=== PATIENT | female | born 1945 | race Caucasian/White ===

== ENCOUNTER 2018-08-08 05:43 | Inpatient (IN) | payer MEDICARE ==
[~2018-08-08 05:43] MED LIST: Buffered Lidocaine 1% SYRIN* 1 ML/SYRINGE INTRADERM ONE
[2018-08-08] MEDS ORDERED: Gabapentin CAP(*) 300 MG PO ONE (06:00)
[2018-08-08] MEDS ORDERED: celeCOXIB CAP* 200 MG PO ONE (06:00)
[2018-08-08] MEDS ORDERED: Metoclopramide IV* 5 MG/ML 2 ML VIAL IV SLOW PU ONE (06:00)
[2018-08-08] MEDS ORDERED: Famotidine TAB* 20 MG PO ONE (06:00)
[2018-08-08] MEDS ORDERED: Acetaminophen TAB* 325 MG PO ONE (06:00)
[2018-08-08] MEDS ORDERED: Lactated Ringers 1000 ML Bag* 1,000 ML IV SCH ×2 (06:00→15:00)
[2018-08-08] MEDS ORDERED: Metoclopramide IV* 5 MG/ML 2 ML VIAL ONE (06:18)
[2018-08-08] MEDS ORDERED: celeCOXIB CAP* 200 MG ONE (06:18)
[2018-08-08] MEDS ORDERED: Acetaminophen TAB* 325 MG ONE (06:18)
[2018-08-08] MEDS ORDERED: Gabapentin CAP(*) 300 MG ONE (06:18)
[2018-08-08] MEDS ORDERED: Famotidine TAB* 20 MG ONE (06:18)
[2018-08-08] MEDS ORDERED: ceFAZolin 2 GM in NS PREMIX(*) 2 GM/100 ML BAG IVPB ONE (06:19)
[2018-08-08] MEDS ORDERED: Thrombin 5,000 UNITS* 1 APPLIC KIT - topical use - TOPICAL ONE (07:23)
[2018-08-08] MEDS ORDERED: Lidocaine 1% MPF wEPI 200,000* 30 ML SDV ONE (07:23)
[2018-08-08] MEDS ORDERED: Bacitracin INJECTION* 50,000 UNITS ONE ×2 (07:24→11:43)
[2018-08-08] MEDS ORDERED: Rocuronium* 10 MG/ML VIAL ONE ×2 (07:25→08:35)
[2018-08-08] MEDS ORDERED: fentaNYL* 50 MCG/ML 2 ML VIAL (100 MCG VIAL) ONE ×2 (07:25→15:29)
[2018-08-08] MEDS ORDERED: Midazolam* 1 MG/ML 2 ML VIAL (2 MG) ONE (07:25)
[2018-08-08] MEDS ORDERED: Lidocaine 2% PF * 5 ML VIAL ONE (07:25)
[2018-08-08] MEDS ORDERED: Propofol* 10 MG/ML 20 ML BTL ONE (07:26)
[2018-08-08] MEDS ORDERED: Succinylcholine* 20 MG/ML 10 ML VIAL ONE (07:26)
[2018-08-08] MEDS ORDERED: HYDROmorphone INJ1* 1 MG/ML SYRINGE ONE (08:07)
[2018-08-08] MEDS ORDERED: Naloxone* 0.4 MG/ML 1 ML VIAL IV PRN (08:13)
[2018-08-08] MEDS ORDERED: fentaNYL* 50 MCG/ML 2 ML VIAL (100 MCG VIAL) IV PRN (08:13)
[2018-08-08] MEDS ORDERED: oxyCODONE TAB* 5 MG TAB PO PRN (08:13)
[2018-08-08] MEDS ORDERED: HYDROmorphone INJ1* 1 MG/ML SYRINGE IV PRN (08:13)
[2018-08-08] MEDS ORDERED: Acetaminophen IV 1GM/100ML * 1,000 MG/100 ML VIAL IVPB ONE (08:13)
[2018-08-08] MEDS ORDERED: EPHEDrine (Pressors)* 50 MG/ML VIAL ONE (08:31)
[2018-08-08] MEDS ORDERED: ceFAZolin VIAL(*) VIAL ONE (12:03)
[2018-08-08] MEDS ORDERED: Ondansetron INJ* 2 MG/ML VIAL ONE (13:10)
[2018-08-08] MEDS ORDERED: Magnesium Hydroxide LIQ* 30 ML UDC PO PRN (14:13)
[2018-08-08] MEDS ORDERED: Albuterol 2.5 MG/3 ML NEB.SOL* (0.083%) INH PRN (14:29)
[2018-08-08] MEDS ORDERED: Mupirocin 2% OINT* TUBE TOPICAL PRN (14:29)
[2018-08-08] MEDS ORDERED: Triamcinolone 0.1% CREAM (NF) 15 GM TUBE TOPICAL PRN (14:29)
[2018-08-08] MEDS ORDERED: Acetaminophen IV 1GM/100ML * 100 ML ONE (14:47)
[2018-08-08] MEDS ORDERED: DiMENhydriNATE IV* 50 MG/ML VIAL ONE (15:00)
[2018-08-08] MEDS: DiMENhydriNATE IV* 50 MG/ML VIAL IV PUSH PRN ×2 (15:02→15:44)
[2018-08-08] MEDS: HYDROcodone/ACETAMIN 5-325 MG* 1 TAB PO PRN ×2 (17:02→21:32)
[2018-08-08] MEDS: Atorvastatin* 10 MG TAB PO SCH (17:49)
[2018-08-08] MEDS ORDERED: Senna TAB PO PRN (20:17)
[2018-08-08] MEDS ORDERED: Dextrose 50% Syringe 50 ML* 25 GM/50 ML SYRINGE IV PUSH PRN (20:17)
[2018-08-08] MEDS ORDERED: metFORMIN* 500 MG TAB PO SCH (21:00)
[2018-08-08] MEDS: Docusate CAP* 100 MG PO PRN (21:32)
[2018-08-08] MEDS: Cyclobenzaprine TAB* 10 MG PO PRN (21:33)
[2018-08-08] MEDS: Insulin LISPRO* 1 UNITS UNIT SUBCUT SCH (21:35)
--- NOTE | 2018-08-08 22:43 | CONS ---
CC: Dia Marie NP* CONSULTATION REPORT: DATE OF CONSULTATION: 08/08/18 PRIMARY CARE PROVIDER: Dia Marie NP. PHYSICIAN IN CONSULTATION: Dr. Balderas.* PRIMARY DIAGNOSIS: L3-L4 and L4-L5 right laminectomy. REASON FOR CONSULTATION: Medical management of hypertension, hyperlipidemia, type 2 diabetes. HISTORY OF PRESENT ILLNESS/HOSPITAL COURSE: Mrs. Veloz is a 73-year-old female, who presented to the [facility] today for an elective L3-L4 and L4-L5 right laminectomy with Dr. Balderas. PAST MEDICAL HISTORY: 1. Gastroduodenitis. 2. Type 2 diabetes. 3. Hypertension. 4. Hypothyroid. 5. GERD. 6. Hyperlipidemia. PAST SURGICAL HISTORY: 1. Cholecystectomy. 2. Tubal ligation. 3. Appendectomy. 4. Rectocele repair. 5. Total hysterectomy. 6. Carpal tunnel release. HOME MEDICATIONS: 1. PreserVision 1 each p.o. b.i.d. 2. Triamcinolone 0.1 cream, 1 application topical. 3. Simvastatin 1 tab p.o. q.p.m. 4. Protonix 40 mg p.o. q.a.m. 5. Bactroban 1 application topical once. 6. Multivitamin 1 tab p.o. q.a.m. 7. Metoprolol succinate 25 mg p.o. q.a.m. 8. Metformin 1000 mg p.o. q.p.m. 9. Losartan 50 mg p.o. q.a.m. 10. Levothyroxine 175 mcg p.o. q.a.m. 11. Krill oil omega 1 cap p.o. q.a.m. 12. Furosemide 20 mg p.o. q.a.m. 13. Celexa 20 mg p.o. q.a.m. 14. Albuterol nebulizer 2.5 mg inhalations t.i.d. 15. Align 1 cap p.o. q.a.m. FAMILY HISTORY: The patient reports that her father due to colon cancer in his 80s. She reports her mother was due to kidney disease. She reports she has a brother who is due to pancreatic cancer. She reports she has a living sister who has colon polyps. SOCIAL HISTORY: The patient lives with her . The patient is independent in her ADLs. The patient is a former smoker who reports a 30-year, 1.5-pack per day, history. The patient reports social alcohol use approximately 3 times a week. The patient denies drug use. REVIEW OF SYSTEMS: The patient reports right-sided back pain that radiates to her buttocks. The patient rates the pain as 4/10. The patient denies numbness or tingling, chest pain, shortness of breath, nausea, vomiting, headache. A 14- point review of systems was completed and all others are negative. PHYSICAL EXAMINATION: General: Mrs. Veloz is a 73-year-old female, who is lying flat in bed. She appears to be in no acute distress. Appears stated age. Vital Signs: Temp 98.1, HR 78, RR 16, O2 saturation 100% on room air, BP 123/ 48. HEENT: EOMs intact. PERRLA. Oral mucosa is moist, without lesions. Posterior pharynx is clear. Neck: Supple. No lymphadenopathy. Respiratory: Lungs are clear to auscultation. No wheezes, rhonchi or rubs. Good aeration. Cardiac: S1 and S2 present. No murmurs, rubs or gallops. Regular rate and rhythm. Abdomen: Soft, nontender. Bowel sounds normoactive. Extremities: No edema. No clubbing or cyanosis. Pedal pulses are 2+ bilaterally. Musculoskeletal: The patient reports pain to lumbar spine. No other deformities or pain noted. Skin: Grossly intact. Neuro: Neuro exam is grossly intact. No focal deficits or weakness. ASSESSMENT AND PLAN: 1. Status post L3-L4 and L4-L5 laminectomy: Managed per neurosurgery team. Pain medication has been ordered per Neurosurgery. I will add bowel regimen. The patient has SCDs for DVT prophylaxis. 2. Dural leak: There is a report of a dural leak. Therefore, the patient is to remain flat at all times. She can increase to 30 degrees for eating, then return to the flat position. The patient should be monitored for headache, nausea, and vomiting. The patient was educated on these symptoms and encouraged to call nursing immediately if they occur. The patient stated understanding. 3. Type 2 diabetes: The patient is on metformin at home. Given her current surgery, I will hold her metformin and place her on a sliding scale lispro with fingersticks a.c. and at bedtime. 4. Hypertension: The patient is currently normotensive, with slight hypotension. Last systolic was 123 and the one before that was 118. Given her postop status, I will hold her Lasix and losartan. I will continue her metoprolol. 5. Hypothyroid: I will continue the patient's levothyroxine. 6. Gastroesophageal reflux disease: I will continue the patient's PPI. 7. Hypercholesterolemia: I would recommend continuing the patient's statin. 8. Surrogate decision maker: The patient reports her , Aris Veloz , will be her surrogate decision maker in the event she cannot make decisions for herself. 9. Code status: The patient is a full code. 10. FEN: Diet has been ordered by the neurosurgery team. Thank you for allowing us to assist you in the care of this patient. We will follow along with you while the patient is admitted. Reviewed by LYNDSEY BAZZI NP 08/11/18 @ 1005 [id number]/[facility] #: [id number] MTDD
[2018-08-09] MEDS: HYDROcodone/ACETAMIN 5-325 MG* 1 TAB PO PRN ×4 (03:30→21:16)
[2018-08-09] MEDS ORDERED: Furosemide TAB* 20 MG PO SCH (09:00)
[2018-08-09] MEDS ORDERED: Losartan TAB* 25 MG PO SCH (09:00)
[2018-08-09] MEDS: OMEGA PO SCH (09:04)
[2018-08-09] MEDS: BIFIDOBACTERIUM INFANTIS PO SCH (09:04)
[2018-08-09] MEDS: DHA PO SCH (09:04)
[2018-08-09] MEDS: EPA PO SCH (09:04)
[2018-08-09] MEDS: LIPIDS PO SCH (09:04)
[2018-08-09] MEDS: KRILL PO SCH (09:04)
[2018-08-09] MEDS: Insulin LISPRO* 1 UNITS UNIT SUBCUT SCH ×4 (09:05→21:17)
[2018-08-09] MEDS: Vitamin THERAPEUTIC TAB PO SCH (09:05)
[2018-08-09] MEDS: Pantoprazole TAB * 40 MG TAB PO SCH (09:05)
[2018-08-09] MEDS: Metoprolol Succinate XL TAB* 25 MG PO SCH (09:05)
--- NOTE | 2018-08-09 09:15 | PN ---
Progress Note - Progress Note Date of Service: 08/09/18 SOAP: Subjective: 73 y/o female post right side laminectomy, foraminotomy at L3/L4, L4/L5 POD # 1 , patient did not have any acute issues over night. She denies headache, nausea and vomiting. She has been able to tolerate oral intake with out issues. Patient states pain in leg has improved, but strength is unchanged. Objective: Vital Signs - 12 hr Temp Pulse Resp BP Pulse Ox 08/09/18 07:51 98.6 F 79 20 125/53 92 08/09/18 07:42 20 98 08/09/18 05:30 20 08/09/18 03:30 20 08/09/18 03:03 98.3 F 76 18 132/54 98 08/09/18 01:21 99 08/09/18 00:10 16 08/09/18 00:09 16 08/08/18 22:39 98.7 F 75 16 138/55 99 08/08/18 21:45 20 08/08/18 21:35 20 08/08/18 21:33 20 08/08/18 21:32 20 08/08/18 21:28 20 General: GCS 15, A&O x 3, CN II - XII grossly intact, EOM's intact, UPE motor strength intact, Lower extremity motor strength right 4/5 with hip flexion and extension, 5/5 on left with hip flexion and extension. Sensation intact with light touch. Assessment: 73 y/o female post right laminectomy, foraminotomy POD#1 patient is doing well, still on bed rest, with bed flat. The sensation has improved in her right leg, but strength is unchanged. Plan: 1) Continue bed rest, bed should bed flat, may elevate bed up to 30 degrees when eating 2)Continue follow medicines recommendation for BP, HTN, DM and HLD management. 3) Pain management as needed
[2018-08-09 10:02] LABS: ABS Basophils 0.1 10^3/ul (0-0.2); ABS Eosinophils 0.1 10^3/ul (0-0.6); ABS Lymphocytes 1.3 10^3/ul (1.0-4.8); ABS Monocytes 0.3 10^3/ul (0-0.8); ABS Neutrophils 4.3 10^3/ul (1.5-7.7); Eosinophil % 1.1 %; Hematocrit 32 % (35-47); Hemoglobin 11.1 g/dL (12.0-16.0); Lymphocyte % 21.2 %; Mean Corpuscular HGB Conc 34 g/dL (31-36); Mean Corpuscular Hemoglobin 33 pg (27-31); Mean Corpuscular Volume 97 fL (80-97); Mean Platelet Volume 8.2 fL (7.4-10.4); Platelet Count 112 10^3/uL (150-450); Red Blood Count 3.31 10^6 /uL (3.70-4.87); Red Cell Distribution Width 14 % (10-15); White Blood Count 6.1 10^3/uL (3.5-10.8)
[2018-08-09] MEDS: Levothyroxine TAB* 175 MCG TAB PO SCH (10:07)
[2018-08-09 10:26] LABS: Albumin 3.6 g/dL (3.2-5.2); Albumin/Globulin Ratio 1.5 (1-3); BUN/Creatinine Ratio 21.5 (8-20); Calcium 8.5 mg/dL (8.6-10.3); EGFR African American 71.7 (>60); EGFR Non-African American 59.3 (>60); Globulin 2.4 g/dL (2-4); Total Bilirubin 0.5 mg/dL (0.2-1.0)
--- NOTE | 2018-08-09 15:04 | PN ---
Subjective Date of Service: 08/09/18 Interval History: Patient lying flat in bed on assessment. Reports right sided low back pain continues and radiates to buttocks. Reports it is mildly controlled with current pain medications regime. Denies numbness/tingling, headache, nausea, vomiting, cp, sob. Objective Active Medications: Hydrocodone Bitart/Acetaminophen (Carmi 5-325 Tab*) 2 tab PO Q4H PRN PRN Reason: marked pain Last Admin: 08/09/18 10:09 Dose: 2 tab Albuterol (Ventolin 2.5 Mg/3 Ml Neb.Gertrude*) 2.5 mg INH TID PRN PRN Reason: SOB/WHEEZING Atorvastatin Calcium (Lipitor*) 5 mg PO QPM [facility] Last Admin: 08/08/18 17:49 Dose: 5 mg Cyclobenzaprine HCl (Flexeril Tab*) 10 mg PO TID PRN PRN Reason: muscle ache Last Admin: 08/08/18 21:33 Dose: 10 mg Dextrose (D50w Syringe 50 Ml*) 12.5 gm IV PUSH .FOR FS < 60 - SS PRN PRN Reason: FS < 60 Docusate Sodium (Colace Cap*) 100 mg PO BID PRN PRN Reason: CONSTIPATION Last Admin: 08/08/18 21:32 Dose: 100 mg Lactated Ringer's (Lactated Ringers 1000 Ml Bag*) 1,000 mls @ 75 mls/hr IV .per rate [facility] Insulin Human Lispro (Humalog*) 0 units SUBCUT [facility]; Protocol Last Admin: 08/09/18 13:04 Dose: 3 units Levothyroxine Sodium (Synthroid Tab*) 175 mcg PO [facility] Last Admin: 08/09/18 10:07 Dose: 175 mcg Magnesium Hydroxide (Milk Of Magnesia Liq*) 30 ml PO DAILY PRN PRN Reason: CONSTIPATION Metoprolol Succinate (Toprol Xl Tab*) 25 mg PO [facility] Last Admin: 08/09/18 09:05 Dose: 25 mg Multivitamins (Theragran Tab*) 1 tab PO [facility] Last Admin: 08/09/18 09:05 Dose: 1 tab Mupirocin (Bactroban 2 % Oint*) 1 applic TOPICAL ONCE PRN PRN Reason: SKIN RASH Nft: Bifidobacterium Infantis [Align] 1 Cap) 1 cap PO [facility] Last Admin: 08/09/18 09:04 Dose: Not Given Nft: Krill/Dupree-3/Dha/Epa/Lipids [ Dupree-3 Krill Oil 500 Mg Sfgl] 1 Cap) 1 cap PO QAM SYLVIA Last Admin: 08/09/18 09:04 Dose: Not Given Pantoprazole Sodium (Protonix Tab*) 40 mg PO QAM SYLVIA Last Admin: 08/09/18 09:05 Dose: 40 mg Senna (Senokot Tab*) 2 tab PO BEDTIME PRN PRN Reason: CONSTIPATION Last Admin: 08/08/18 21:32 Dose: 2 tab Triamcinolone Acetonide (Kenalog 0.1% Cream (Nf)) 1 applic TOPICAL ONCE PRN PRN Reason: RASH Vital Signs - 8 hr 08/09/18 08/09/18 08/09/18 07:42 07:51 10:09 Temperature 98.6 F Pulse Rate 79 Respiratory 20 20 18 Rate Blood Pressure 125/53 (mmHg) O2 Sat by Pulse 98 92 Oximetry 08/09/18 08/09/18 11:30 13:07 Temperature 98 F Pulse Rate 72 Respiratory 21 18 Rate Blood Pressure 124/56 (mmHg) O2 Sat by Pulse 94 Oximetry Oxygen Devices in Use Now: Nasal Cannula Appearance: Comfortable, NAD Eyes: No Scleral Icterus Ears/Nose/Mouth/Throat: NL Teeth, Lips, Gums, Mucous Membranes Moist Neck: NL Appearance and Movements; NL JVP Respiratory: Symmetrical Chest Expansion and Respiratory Effort, Clear to Auscultation Cardiovascular: NL Sounds; No Murmurs; No JVD, RRR, No Edema Abdominal: NL Sounds; No Tenderness; No Distention Lymphatic: No Cervical Adenopathy Extremities: No Clubbing, Cyanosis Skin: No Rash or Ulcers Neurological: Alert and Oriented x 3, NL Muscle Strength and Tone Nutrition: Taking PO's Result Diagrams: 08/09/18 09:48 08/09/18 09:48 Additional Lab and Data: Laboratory Results - last 24 hr 08/08/18 08/08/18 08/08/18 06:29 14:19 21:28 WBC RBC Hgb Hct MCV MCH MCHC RDW Plt Count MPV Neut % (Auto) Lymph % (Auto) Emanuel % (Auto) Eos % (Auto) Baso % (Auto) Absolute Neuts (auto) Absolute Lymphs (auto) Absolute Monos (auto) Absolute Eos (auto) Absolute Basos (auto) Absolute Nucleated RBC Nucleated RBC % Sodium Potassium Chloride Carbon Dioxide Anion Gap BUN Creatinine Est GFR ( Amer) Est GFR (Non-Af Amer) BUN/Creatinine Ratio Glucose POC Glucose (mg/dL) 124 H 158 H 128 H Calcium Total Bilirubin AST ALT Alkaline Phosphatase Total Protein Albumin Globulin Albumin/Globulin Ratio 08/09/18 08/09/18 08/09/18 07:37 09:48 09:48 WBC 6.1 RBC 3.31 L Hgb 11.1 L Hct 32 L MCV 97 MCH 33 H MCHC 34 RDW 14 Plt Count 112 L MPV 8.2 Neut % (Auto) 71.6 Lymph % (Auto) 21.2 Emanuel % (Auto) 5.3 Eos % (Auto) 1.1 Baso % (Auto) 0.8 Absolute Neuts (auto) 4.3 Absolute Lymphs (auto) 1.3 Absolute Monos (auto) 0.3 Absolute Eos (auto) 0.1 Absolute Basos (auto) 0.1 Absolute Nucleated RBC 0.0 Nucleated RBC % 0.0 Sodium 137 Potassium 4.0 Chloride 104 Carbon Dioxide 24 Anion Gap 9 BUN 20 Creatinine 0.93 Est GFR ( Amer) 71.7 Est GFR (Non-Af Amer) 59.3 BUN/Creatinine Ratio 21.5 H Glucose 201 H POC Glucose (mg/dL) 139 H Calcium 8.5 L Total Bilirubin 0.50 AST 148 H ALT 141 H Alkaline Phosphatase 55 Total Protein 6.0 L Albumin 3.6 Globulin 2.4 Albumin/Globulin Ratio 1.5 08/09/18 11:31 WBC RBC Hgb Hct MCV MCH MCHC RDW Plt Count MPV Neut % (Auto) Lymph % (Auto) Emanuel % (Auto) Eos % (Auto) Baso % (Auto) Absolute Neuts (auto) Absolute Lymphs (auto) Absolute Monos (auto) Absolute Eos (auto) Absolute Basos (auto) Absolute Nucleated RBC Nucleated RBC % Sodium Potassium Chloride Carbon Dioxide Anion Gap BUN Creatinine Est GFR ( Amer) Est GFR (Non-Af Amer) BUN/Creatinine Ratio Glucose POC Glucose (mg/dL) 189 H Calcium Total Bilirubin AST ALT Alkaline Phosphatase Total Protein Albumin Globulin Albumin/Globulin Ratio Microbiology and Other Data: . Assess/Plan/Problems-Billing Assessment: 73 yr old with pmh of dm2, htn, hld, hypothyroid, gerd; who [place] [facility]. - Patient Problems (1) Status post laminectomy Comment: - POD 1 - Managment per Neurosurgery - Patient to lay flat at all times with the exception of eating at which point she can increase to 30 degress, but needs to return to flat per Neurosurg - Pain management ordered by Neurosurg - Bowel medications ordered (2) Hypertension Comment: - Normotensive - Hold Lasix and Losartan - Continue Metoprolol (3) Hyperlipidemia Comment: - Cont statin (4) Hypothyroid Comment: - Cont levothyroxine (5) GERD (gastroesophageal reflux disease) Comment: - Cont pepcid (6) Diabetes Comment: - Hold home Metformin - Cont SS lispro and FS ACHS (7) Transaminitis Comment: - Mild increase in AST and ALT. - No labs to compare in system - Patient reports she has elevated AST and ALT previously, had a biopsy and was diagnosed with "fatty liver". - Repeat CMP tomorrow (8) DVT prophylaxis Comment: - SCDs per Neurosurg Status and Disposition: Thank you for allowing to assist in the care of this patient. We will follow along with you. Attending: Jared Blackwell
--- NOTE | 2018-08-09 15:34 | OP ---
DATE OF OPERATION: 08/08/18 - ROOM #332 DATE OF : 47 SURGEON: Rohini Balderas MD RIGGER HELPER: TANIKA Reece. The case was done with assistance of surgical PA because of the complexity of the case. PRE-OP DIAGNOSES: 1. Degenerative disk disease. 2. Lumbar stenosis. 3. Neurogenic claudication. POST-OP DIAGNOSES: 1. Degenerative disk disease. 2. Lumbar stenosis. 3. Neurogenic claudication. OPERATIVE PROCEDURE: The patient underwent right side approach MIS laminectomies at L3-4, L4-5 with extended foraminotomies, and repair of incidental durotomy. ESTIMATED BLOOD LOSS: 50 cc. COMPLICATIONS: None. SUMMARY: The patient is a very pleasant 73-year-old female with complaints of back pain radiating to the right lower extremity with neurogenic claudication with MRI findings consistent with significant stenosis at L3-4 and L4-5 with degenerative disk disease. After failing to improve with conservative treatment modalities, she was offered the option of surgical intervention in the form of a lumbar decompression at L3-4 and L4-5. After explaining expectations, limitations, and possible complications of the procedure to the patient and her family including her and her son with complications including, but not limited to bleeding, infection, risk of injury to adjacent structures, coma, paralysis, , need for additional procedures, anesthesia risks, stroke, blindness, cancer, instability, hardware failure, adjacent level disease, pseudoarthrosis, spinal fluid leak, need for placement of lumbar drain , need for prolonged hospitalization, need for further surgeries, need for tracheostomy or gastrostomy, possibility of hematoma formation with loss of bladder and bowel control, as well as paralysis of the lower extremities; the patient was agreeable to proceed with surgery and informed consent was obtained. The patient understood that her condition may not improve and in fact may get worse after surgery and that she may need to have additional procedures in the future. The patient also understood that the operative plan may be modified according to intraoperative findings and conditions and that she may require prolonged hospitalization, prolonged ICU stay, or prolonged rehabilitation. She also understood that the case may be abandoned or done in more than 1 stages. DESCRIPTION OF PROCEDURE: The patient was brought to the operating room and was placed under general anesthesia by the anesthesia team. She was carefully positioned prone on the Giovany frame on the Scot table and all bony prominences were meticulously padded. Her skin was prepped and draped in the standard fashion. After appropriate surgical pause and patient identification, operative level was assessed with intraoperative fluoroscopic imaging. A small right paramedian incision over the L3-4 and L4-5 disk space was marked on the skin and the skin was infiltrated with local anesthetic. Skin was incised with #10 surgical blade. Incision was carried down through the dorsal fascia. Over a series of dilators, the [employer] tubular retractor system was introduced into the field. The operative microscope was brought into the field. Under microscopic magnification, the right lamina of L4 was identified and exposed. High-speed drill and Kerrison punches were used perform an ipsilateral and contralateral laminectomy at the L4 with extended foraminotomies. After repositioning of the retractor, the procedure was repeated for the L3 level. A significant stenosis in both levels was encountered and after the end of the decompression and foraminotomies, the thecal sac in both sides as well as the nerve roots were found to be free of any pressure phenomenon. Then, intraoperative fluoroscopic imaging confirmed appropriate surgical levels. After redirection of the tubular retractor caudally, it was elected to slightly extend the decompression at the L4-5 level based on the preoperative MRI. An incidental durotomy was noticed, which was identified. After the dura was gently exposed with use of Kerrison punches, the durotomy was isolated and it was primarily repaired with 4-0 Nurolon sutures. The dural defect was covered with Tisseel and layers of DuraGen. Of note, the dura was found to be extremely thin at that particular level and even when the primary closure was achieved, there was concern for future CSF leak from the thin part of the thecal sac. After the repair, Valsalva maneuver confirmed watertight closure. After copious irrigation, meticulous hemostasis confirmation and meticulous inspection, the tubular retractor was then gently removed and the wound was closed by layers. The dorsal fascia was approximated with 0 interrupted Vicryl sutures in a watertight fashion and a second layer of closure with running 0 Vicryl sutures was performed to reinforce the closure. After copious irrigation , meticulous inspection and confirmation of meticulous hemostasis, the subcutaneous tissue was approximated with inverted interrupted 2-0 Vicryl sutures while the skin was approximated with 0 Prolene sutures. At the end of the procedure, all counts were reported to be correct. The patient remained hemodynamically stable throughout the case. At the end of the procedure, the patient was turned supine, was extubated and was transferred to Recovery in excellent condition, moving all extremities well. The case was done with the assistance of surgical PA because of the complexity of the case. [id number]/[facility] #: [id number] MTDD
[2018-08-09] MEDS: Atorvastatin* 10 MG TAB PO SCH (17:52)
[2018-08-09] MEDS: Docusate CAP* 100 MG PO PRN (21:16)
[2018-08-10] MEDS ORDERED: Al Hydrox/Mg Hydrox/Simet LIQ* 30 ML UDC PO PRN (00:18)
[2018-08-10] MEDS: Acetaminophen TAB* 325 MG PO PRN ×2 (05:52→23:15)
[2018-08-10 07:35] LABS: ABS Lymphocytes 1.1 10^3/ul (1.0-4.8); ABS Monocytes 0.6 10^3/ul (0-0.8); ABS Neutrophils 6.1 10^3/ul (1.5-7.7); Eosinophil % 0.6 %; Hematocrit 33 % (35-47); Hemoglobin 11.4 g/dL (12.0-16.0); Lymphocyte % 14.4 %; Mean Corpuscular HGB Conc 35 g/dL (31-36); Mean Corpuscular Hemoglobin 34 pg (27-31); Mean Corpuscular Volume 97 fL (80-97); Mean Platelet Volume 8.7 fL (7.4-10.4); Platelet Count 123 10^3/uL (150-450); Red Blood Count 3.36 10^6 /uL (3.70-4.87); Red Cell Distribution Width 15 % (10-15); White Blood Count 7.9 10^3/uL (3.5-10.8)
[2018-08-10 07:52] LABS: Albumin 3.7 g/dL (3.2-5.2); Albumin/Globulin Ratio 1.3 (1-3); BUN/Creatinine Ratio 20.8 (8-20); Calcium 8.9 mg/dL (8.6-10.3); EGFR African American 96.3 (>60); EGFR Non-African American 79.6 (>60); Globulin 2.8 g/dL (2-4); Indirect Bilirubin 0.5 mg/dL (0.3-1.0); Potassium 4.4 mmol/L (3.5-5.0); Total Bilirubin 0.6 mg/dL (0.2-1.0); Total Protein 6.5 g/dL (6.4-8.9)
--- NOTE | 2018-08-10 08:12 | PN ---
Progress Note - Progress Note Date of Service: 08/10/18 SOAP: Subjective: 73 y/o female post right side laminectomy foraminotomy at L3/L4, L4/L5 POD#2. Patient doing well, reports having a mild headache earlier this morning that was relived with Tylenol. She had some nausea, but feels the Hydrocodone upsets her stomach. She has remained on bed rest with remaining flat, only elevated for eating. overall patient has been stable and feel improvement with right leg strength. Objective: Vital Signs - 12 hr Temp Pulse Resp BP Pulse Ox 08/10/18 07:53 22 08/10/18 07:15 98.2 F 78 22 155/66 95 08/10/18 04:59 92 08/10/18 03:46 98.0 F 77 16 151/64 08/09/18 23:46 20 08/09/18 23:44 99.1 F 81 16 147/52 92 08/09/18 23:43 88 08/09/18 21:16 20 08/09/18 21:00 20 General: patient laying flat NAD Neuro: GCS 15, A&O x 3, CN II -XII, EOM intact, UPE motor strength 5/5 bilaterally, right LE 4/5, left LE 5/5, sensation intact. Assessment: 73 y/o female post laminectomy foraminotomy POD #2 recovering well, R LE strength appears to have improved, she able to lift leg more this morning than previously. Plan: Pain control as tolerated Have her work with resistance bands on LE while in bed Continue IS Can elevate HOB to 40 degrees when eating, should remain flat otherwise.
[2018-08-10] MEDS: BIFIDOBACTERIUM INFANTIS PO SCH (09:40)
[2018-08-10] MEDS: DHA PO SCH (09:40)
[2018-08-10] MEDS: LIPIDS PO SCH (09:40)
[2018-08-10] MEDS: OMEGA PO SCH (09:40)
[2018-08-10] MEDS: KRILL PO SCH (09:40)
[2018-08-10] MEDS: EPA PO SCH (09:40)
[2018-08-10] MEDS: Metoprolol Succinate XL TAB* 25 MG PO SCH (09:43)
[2018-08-10] MEDS: Pantoprazole TAB * 40 MG TAB PO SCH (09:43)
[2018-08-10] MEDS: Vitamin THERAPEUTIC TAB PO SCH (09:44)
[2018-08-10] MEDS: Insulin LISPRO* 1 UNITS UNIT SUBCUT SCH ×4 (09:44→21:02)
[2018-08-10] MEDS: Docusate CAP* 100 MG PO PRN (09:53)
[2018-08-10] MEDS: Cyclobenzaprine TAB* 10 MG PO PRN (09:53)
[2018-08-10] MEDS: Levothyroxine TAB* 175 MCG TAB PO SCH (11:13)
[2018-08-10] MEDS: HYDROcodone/ACETAMIN 5-325 MG* 1 TAB PO PRN ×2 (11:24→16:35)
--- NOTE | 2018-08-10 14:58 | PN ---
Subjective Date of Service: 08/10/18 Interval History: Patient lying flat in bed. She reports back pain is well controlled today as she just received a prn pain medication. She denies headache, nausea, vomiting, cp, sob. Objective Active Medications: Acetaminophen (Tylenol Tab*) 650 mg PO Q4H PRN PRN Reason: PAIN Last Admin: 08/10/18 05:52 Dose: 650 mg Hydrocodone Bitart/Acetaminophen ([place] 5-325 Tab*) 2 tab PO Q4H PRN PRN Reason: marked pain Last Admin: 08/10/18 11:24 Dose: 2 tab Al Hydrox/Mg Hydrox/Simethicone (Maalox Plus*) 30 ml PO Q4H PRN PRN Reason: INDIGESTION Last Admin: 08/10/18 00:27 Dose: 30 ml Albuterol (Ventolin 2.5 Mg/3 Ml Neb.Gertrude*) 2.5 mg INH TID PRN PRN Reason: SOB/WHEEZING Atorvastatin Calcium (Lipitor*) 5 mg PO QPM [facility] Last Admin: 08/09/18 17:52 Dose: 5 mg Cyclobenzaprine HCl (Flexeril Tab*) 10 mg PO TID PRN PRN Reason: muscle ache Last Admin: 08/10/18 09:53 Dose: 10 mg Dextrose (D50w Syringe 50 Ml*) 12.5 gm IV PUSH .FOR FS < 60 - SS PRN PRN Reason: FS < 60 Docusate Sodium (Colace Cap*) 100 mg PO BID PRN PRN Reason: CONSTIPATION Last Admin: 08/10/18 09:53 Dose: 100 mg Lactated Ringer's (Lactated Ringers 1000 Ml Bag*) 1,000 mls @ 75 mls/hr IV .per rate [facility] Insulin Human Lispro (Humalog*) 0 units SUBCUT ACHS [facility]; Protocol Last Admin: 08/10/18 13:03 Dose: 3 units Levothyroxine Sodium (Synthroid Tab*) 175 mcg PO [facility] Last Admin: 08/10/18 11:13 Dose: 175 mcg Magnesium Hydroxide (Milk Of Magnesia Liq*) 30 ml PO DAILY PRN PRN Reason: CONSTIPATION Metoprolol Succinate ([facility] Xl Tab*) [facility] Last Admin: 08/10/18 09:43 Dose: 25 mg Multivitamins (Theragran Tab*) 1 tab PO QAM [facility] Last Admin: 08/10/18 09:44 Dose: 1 tab Mupirocin (Bactroban 2 % Oint*) 1 applic TOPICAL ONCE PRN PRN Reason: SKIN RASH Nft: Bifidobacterium Infantis [Align] 1 Cap) 1 cap PO QAM [facility] Last Admin: 08/10/18 09:40 Dose: Not Given Nft: Krill/[place]-3/Dha/Epa/Lipids [ [place]-3 Krill Oil 500 Mg Sfgl] 1 Cap) 1 cap PO QAM [facility] Last Admin: 08/10/18 09:40 Dose: Not Given Pantoprazole Sodium (Protonix Tab*) 40 mg PO QAM [facility] Last Admin: 08/10/18 09:43 Dose: 40 mg Senna (Senokot Tab*) 2 tab PO BEDTIME PRN PRN Reason: CONSTIPATION Last Admin: 08/08/18 21:32 Dose: 2 tab Triamcinolone Acetonide (Kenalog 0.1% Cream (Nf)) 1 applic TOPICAL ONCE PRN PRN Reason: RASH Vital Signs - 8 hr 08/10/18 08/10/18 08/10/18 07:15 07:53 09:53 Temperature 98.2 F Pulse Rate 78 Respiratory 22 22 16 Rate Blood Pressure 155/66 (mmHg) O2 Sat by Pulse 95 Oximetry 08/10/18 08/10/18 08/10/18 11:12 11:24 12:05 Temperature 98.8 F Pulse Rate 81 Respiratory 16 20 18 Rate Blood Pressure 152/62 (mmHg) O2 Sat by Pulse 97 Oximetry Oxygen Devices in Use Now: Nasal Cannula Appearance: Comfortable, NAD Eyes: No Scleral Icterus, PERRLA Ears/Nose/Mouth/Throat: Clear Oropharnyx, Mucous Membranes Moist Neck: NL Appearance and Movements; NL JVP Respiratory: Symmetrical Chest Expansion and Respiratory Effort, Clear to Auscultation Cardiovascular: NL Sounds; No Murmurs; No JVD, RRR, No Edema Abdominal: NL Sounds; No Tenderness; No Distention Lymphatic: No Cervical Adenopathy Extremities: No Clubbing, Cyanosis, - - No calf pain, swelling, or warmth Skin: No Rash or Ulcers, - - Dressing to lumbar spine CDI Neurological: Alert and Oriented x 3, NL Muscle Strength and Tone Nutrition: Taking PO's Result Diagrams: 08/10/18 06:51 08/10/18 06:51 Additional Lab and Data: Laboratory Results - last 24 hr 08/09/18 08/09/18 08/10/18 16:28 20:55 06:51 WBC 7.9 RBC 3.36 L Hgb 11.4 L Hct 33 L MCV 97 MCH 34 H MCHC 35 RDW 15 Plt Count 123 L MPV 8.7 Neut % (Auto) 77.3 Lymph % (Auto) 14.4 Anson % (Auto) 7.4 Eos % (Auto) 0.6 Baso % (Auto) 0.3 Absolute Neuts (auto) 6.1 Absolute Lymphs (auto) 1.1 Absolute Monos (auto) 0.6 Absolute Eos (auto) 0.0 Absolute Basos (auto) 0.0 Absolute Nucleated RBC 0.0 Nucleated RBC % 0.0 Sodium Potassium Chloride Carbon Dioxide Anion Gap BUN Creatinine Est GFR ( Amer) Est GFR (Non-Af Amer) BUN/Creatinine Ratio Glucose POC Glucose (mg/dL) 158 H 164 H Calcium Total Bilirubin Direct Bilirubin Indirect Bilirubin AST ALT Alkaline Phosphatase Total Protein Albumin Globulin Albumin/Globulin Ratio 08/10/18 08/10/18 08/10/18 06:51 07:46 12:17 WBC RBC Hgb Hct MCV MCH MCHC RDW Plt Count MPV Neut % (Auto) Lymph % (Auto) Anson % (Auto) Eos % (Auto) Baso % (Auto) Absolute Neuts (auto) Absolute Lymphs (auto) Absolute Monos (auto) Absolute Eos (auto) Absolute Basos (auto) Absolute Nucleated RBC Nucleated RBC % Sodium 137 Potassium 4.4 Chloride 105 Carbon Dioxide 26 Anion Gap 6 BUN 15 Creatinine 0.72 Est GFR ( Amer) 96.3 Est GFR (Non-Af Amer) 79.6 BUN/Creatinine Ratio 20.8 H Glucose 172 H POC Glucose (mg/dL) 163 H 152 H Calcium 8.9 Total Bilirubin 0.60 Direct Bilirubin 0.10 Indirect Bilirubin 0.5 AST 102 H ALT 131 H Alkaline Phosphatase 56 Total Protein 6.5 Albumin 3.7 Globulin 2.8 Albumin/Globulin Ratio 1.3 Microbiology and Other Data: . Assess/Plan/Problems-Billing Assessment: 73 yr old with pmh of dm2, htn, hld, hypothyroid, gerd; who presented to [facility] for elective laminectomy. - Patient Problems (1) Hypoxia Comment: - Noted low O2 of 88% on room air therefore supplemental O2 placed by nursing - Discussed risk of pneumonia and importance of deep breathing and incentive spirom - Lung sounds clear - No S/S infection - Monitor (2) Status post laminectomy Comment: - POD 2 - Managment per Neurosurgery - Patient to lay flat at all times with the exception of eating at which point she can increase to 30 degress, but needs to return to flat per Neurosurg - Pain management ordered by Neurosurg - Bowel medications ordered (3) Hypertension Comment: - Normotensive - Hold Lasix (takes of BP not HF) and Losartan for now; Consider restarting cautiously to avoid hypotension when she stands for the first time in several days - Continue Metoprolol (4) Hyperlipidemia Comment: - Cont statin (5) Hypothyroid Comment: - Cont levothyroxine (6) GERD (gastroesophageal reflux disease) Comment: - Cont pepcid (7) Diabetes Comment: - Hold home Metformin - Cont SS lispro and FS ACHS (8) Transaminitis Comment: - Mild increase in AST and ALT yesterday. Trending down today - No labs to compare in system - Patient reports she has elevated AST and ALT previously, had a biopsy and was diagnosed with "fatty liver". - Follow up with PCP (9) DVT prophylaxis Comment: - SCDs per Neurosurg Status and Disposition: Thank you for allowing to assist in the care of this patient. We will follow along with you. Attending: Jared Blackwell
[2018-08-10] MEDS: Atorvastatin* 10 MG TAB PO SCH (18:09)
[2018-08-11] MEDS: Insulin LISPRO* 1 UNITS UNIT SUBCUT SCH ×4 (08:12→21:24)
[2018-08-11] MEDS: Levothyroxine TAB* 175 MCG TAB PO SCH (08:15)
--- NOTE | 2018-08-11 08:39 | PN ---
Progress Note - Progress Note Date of Service: 08/11/18 SOAP: Subjective: 72 y/o female post right formanotomy and laminectomy of L3/L4, L4/L5, POD #3 patient is doing well. Previously was having some low O2 stats and was placed on 2L of O2. She was given a nebulizer treatment yesterday that patient feels helped. This morning she denies SOB, CP, headache, nausea or vomiting. Patient continues to pass gas, but has not had BM yet. Her surgical pain has been well controlled, sensation in right leg has improved, also the strength. She has notice improved ROM with hip flexion and extension. She was seen by PT and was given exercises to do while on flat bed rest. Patient has been on bed rest precaution the last 2 days, with elevation of HOP to 30 degrees when eating. Objective: Vital Signs - 12 hr Temp Pulse Resp BP Pulse Ox 08/11/18 07:49 98.2 F 80 16 146/55 97 08/11/18 03:33 98.5 F 77 16 146/61 97 08/11/18 01:56 18 08/10/18 23:15 98.2 F 85 17 152/60 96 08/10/18 20:39 18 General: Patient laying flat in bed, comfortable on 2L of O2, NAD Neuro: GCS 15, A&O x 3, CN II -XII, EOM intact, UPE motor strength 5/5 bilaterally, right LE 4+/5, left LE 5/5, sensation intact. Abd: Soft non tender Wound C/D/I Assessment: 72 y/o female post laminectomy, formanotomy POD # 3 recovering well, patient has no acute issues, has been stable and tolerated flat bed rest. Her O2 sat has improved and no longer requires 2 liters of O2. Plan: Gradually elevate HOB 10 - 15 degrees/hr D/C brown Pain management as needed.
--- NOTE | 2018-08-11 09:19 | PN ---
Subjective Date of Service: 08/11/18 Interval History: Ms. Veloz is feeling well today. She denies any SOB or cough. No CP, N/V. She has experienced hypoxia in the past when she had pneumonia and does not feel nearly that poor now. Her PCP recently increased her metformin from 500mg to 1,000mg daily and she has been unable to afford the new pills as they are not on the [employer] $4 list. No concerns from nursing. Family History: Unchanged from Admission Social History: Unchanged from Admission Past Medical History: Unchanged from Admission Objective Active Medications: Acetaminophen (Tylenol Tab*) 650 mg PO Q4H PRN PAIN Hydrocodone Bitart/Acetaminophen ([place] 5-325 Tab*) 2 tab PO Q4H PRN marked pain Al Hydrox/Mg Hydrox/Simethicone (Maalox Plus*) 30 ml PO Q4H PRN INDIGESTION Albuterol (Ventolin 2.5 Mg/3 Ml Neb.Gertrude*) 2.5 mg INH TID PRN SOB/WHEEZING Atorvastatin Calcium (Lipitor*) 5 mg PO QPM [facility] Cyclobenzaprine HCl (Flexeril Tab*) 10 mg PO TID PRN muscle ache Dextrose (D50w Syringe 50 Ml*) 12.5 gm IV PUSH .FOR FS < 60 - SS PRN FS < 60 Docusate Sodium (Colace Cap*) 100 mg PO BID PRN CONSTIPATION Lactated Ringer's (Lactated Ringers 1000 Ml Bag*) 1,000 mls @ 75 mls/hr IV .per rate [facility] Insulin Human Lispro (Humalog*) 0 units SUBCUT ACHS [facility]; Protocol Levothyroxine Sodium (Synthroid Tab*) 175 mcg PO 0600 [facility] Magnesium Hydroxide (Milk Of Magnesia Liq*) 30 ml PO DAILY PRN CONSTIPATION Metoprolol Succinate (Toprol Xl Tab*) 25 mg PO QAM [facility] Multivitamins (Theragran Tab*) 1 tab PO QAM [facility] Mupirocin (Bactroban 2 % Oint*) 1 applic TOPICAL ONCE PRN SKIN RASH Nft: Bifidobacterium Infantis [Align] 1 Cap) 1 cap PO QAM [facility] Nft: Krill/[place]-3/Dha/Epa/Lipids [ [place]-3 Krill Oil 500 Mg Sfgl] 1 Cap) 1 cap PO QAM [facility] Pantoprazole Sodium (Protonix Tab*) 40 mg PO QAM [facility] Senna (Senokot Tab*) 2 tab PO BEDTIME PRN CONSTIPATION Triamcinolone Acetonide (Kenalog 0.1% Cream (Nf)) 1 applic TOPICAL ONCE PRN Vital Signs - 8 hr 08/11/18 08/11/18 08/11/18 01:56 03:33 07:49 Temperature 98.5 F 98.2 F Pulse Rate 77 80 Respiratory 18 16 16 Rate Blood Pressure 146/61 146/55 (mmHg) O2 Sat by Pulse 97 97 Oximetry Appearance: Elderly woman laying in bed in NAD Eyes: No Scleral Icterus Ears/Nose/Mouth/Throat: Mucous Membranes Moist Neck: NL Appearance and Movements; NL JVP, Trachea Midline Respiratory: Symmetrical Chest Expansion and Respiratory Effort, Clear to Auscultation Cardiovascular: NL Sounds; No Murmurs; No JVD, RRR Abdominal: NL Sounds; No Tenderness; No Distention Extremities: No Edema Neurological: Alert and Oriented x 3, NL Sensation Lines/Tubes/Other Access: Clean, Dry and Intact Peripheral IV Nutrition: Taking PO's Result Diagrams: 08/10/18 06:51 08/10/18 06:51 Assess/Plan/Problems-Billing Assessment: Ms. Veloz is a 73 yo F with PMH of DM2, HTN, HLD, hypothyroid, and GERD; who presented to [facility] for elective laminectomy. Hospital Medicine is consulting for comedical management. - Patient Problems (1) Status post laminectomy Code(s): Z98.890 - OTHER SPECIFIED POSTPROCEDURAL STATES Comment: - POD 3 - Managment per Neurosurgery - Patient to lay flat at all times with the exception of eating at which point she can increase to 30 degress per Neurosurgery - Continue [place], bowel regimen (2) Transaminitis Code(s): R74.0 - NONSPEC ELEV OF LEVELS OF TRANSAMNS & LACTIC ACID DEHYDRGNSE Comment: - Mild increase in AST and ALT, now trending down today; no prior labs for comparison - Patient reports she has elevated AST and ALT previously, had a biopsy and was diagnosed with "fatty liver" - Follow up with PCP (3) Hypoxia Code(s): R09.02 - HYPOXEMIA Comment: - Resolved; suspect secondary to postop atelectasis - There may also be some component of reactive airway disease; I sent in a script for an albuterol MDI, though she states she has been unable to afford the copays for these in the past - Continue IS (4) Diabetes Code(s): E11.9 - TYPE 2 DIABETES MELLITUS WITHOUT COMPLICATIONS Comment: - Hold metformin; I did send in a script for metformin ER 500mg tabs (take 2 daily) as she is not able to afford the copay for the 1,000mg tabs - Continue Lispro SS (5) Hypertension Code(s): I10 - ESSENTIAL (PRIMARY) HYPERTENSION Comment: - Normotensive - Hold lasix (takes for HTN not CHF) - Continue metoprolol; resume losartan (6) Hyperlipidemia Code(s): E78.5 - HYPERLIPIDEMIA, UNSPECIFIED Comment: - Continue atorvastatin (7) GERD (gastroesophageal reflux disease) Code(s): K21.9 - GASTRO-ESOPHAGEAL REFLUX DISEASE WITHOUT ESOPHAGITIS Comment : - Continue famotidine (8) Hypothyroid Code(s): E03.9 - HYPOTHYROIDISM, UNSPECIFIED Comment: - Continue levothyroxine (9) DVT prophylaxis Code(s): Z29.9 - ENCOUNTER FOR PROPHYLACTIC MEASURES, UNSPECIFIED Comment: - SCDs per Neurosurgery Status and Disposition: Dispo per Neurosurgery. Thank you for this consultation. We will continue to follow distantly. Attending: Jared Blackwell
[2018-08-11] MEDS: DHA PO SCH (09:27)
[2018-08-11] MEDS: BIFIDOBACTERIUM INFANTIS PO SCH (09:27)
[2018-08-11] MEDS: KRILL PO SCH (09:27)
[2018-08-11] MEDS: EPA PO SCH (09:27)
[2018-08-11] MEDS: Metoprolol Succinate XL TAB* 25 MG PO SCH (09:27)
[2018-08-11] MEDS: LIPIDS PO SCH (09:27)
[2018-08-11] MEDS: OMEGA PO SCH (09:27)
[2018-08-11] MEDS: Acetaminophen TAB* 325 MG PO PRN (09:28)
[2018-08-11] MEDS: Pantoprazole TAB * 40 MG TAB PO SCH (09:29)
[2018-08-11] MEDS: Vitamin THERAPEUTIC TAB PO SCH (09:29)
[2018-08-11] MEDS: HYDROcodone/ACETAMIN 5-325 MG* 1 TAB PO PRN (16:47)
[2018-08-11] MEDS: Atorvastatin* 10 MG TAB PO SCH (17:19)
[2018-08-12] MEDS: Cyclobenzaprine TAB* 10 MG PO PRN (01:27)
[2018-08-12] MEDS: HYDROcodone/ACETAMIN 5-325 MG* 1 TAB PO PRN (01:28)
[2018-08-12] MEDS: Levothyroxine TAB* 175 MCG TAB PO SCH (05:24)
[2018-08-12] MEDS: Insulin LISPRO* 1 UNITS UNIT SUBCUT SCH ×2 (08:58→13:21)
[2018-08-12] MEDS: Metoprolol Succinate XL TAB* 25 MG PO SCH (09:00)
[2018-08-12] MEDS ORDERED: Losartan TAB* 25 MG PO SCH (09:00)
[2018-08-12] MEDS: Pantoprazole TAB * 40 MG TAB PO SCH (09:00)
[2018-08-12] MEDS: KRILL PO SCH (09:01)
[2018-08-12] MEDS: Vitamin THERAPEUTIC TAB PO SCH (09:01)
[2018-08-12] MEDS: EPA PO SCH (09:01)
[2018-08-12] MEDS: BIFIDOBACTERIUM INFANTIS PO SCH (09:01)
[2018-08-12] MEDS: DHA PO SCH (09:01)
[2018-08-12] MEDS: LIPIDS PO SCH (09:01)
[2018-08-12] MEDS: OMEGA PO SCH (09:01)
--- NOTE | 2018-08-12 10:28 | PN ---
Progress Note - Progress Note Date of Service: 08/12/18 SOAP: Subjective: 72 y/o female post right formanotomy and laminectomy of L3/L4, L4/L5, POD #4 patient is doing well, she is off O2 and is now off flat bed rest. She sill has not walked with PT, only has transferred from bed to chair. This morning she still had brown in, which will be discontinued today. She again denies headache , nausea and vomiting. She felt a little unsteady standing after being on 3 days of flat bed rest. Continues to pass gas but has not had a bowel movement since surgery. Her right leg pain and strength have improved. Objective: Vital Signs - 12 hr Temp Pulse Resp BP Pulse Ox 08/12/18 08:04 17 08/12/18 07:21 98.4 F 71 16 142/63 91 08/12/18 04:48 20 08/12/18 03:12 98.2 F 74 20 145/57 92 08/12/18 01:28 20 08/12/18 01:27 20 08/12/18 00:00 93 08/11/18 23:14 99.1 F 79 17 155/53 93 General: Patient laying flat in bed, comfortable on 2L of O2, NAD Neuro: GCS 15, A&O x 3, CN II -XII, EOM intact, UPE motor strength 5/5 bilaterally, right LE 4+/5, left LE 5/5, sensation intact. Abd: Soft non tender, active BS in all Quads Wound C/D/I Assessment: 72 y/o female s/p right formanotomy and laminectomy of L3/L4, L4/L5, POD #4, doing well, is off bed rest, still needs to walk with PT/OT, if steady will be ready for discharge from neurosurgery standpoint. Plan: Discontinue bed rest Up out of bed to chair Walk with PT/OT D/C brown, void Consider suppoistory if no BM Follow medicine recommendations D/C planning
[2018-08-12 15:33] VITALS: BP 146/57
--- NOTE | 2018-08-15 23:01 | DS ---
DISCHARGE SUMMARY: DATE OF ADMISSION: DATE OF SURGERY: 08/08/18 DATE OF DISCHARGE: 08/12/18 ATTENDING PHYSICIAN: Dr. Balderas. DISPOSITION ON DISCHARGE: Good. HOSPITAL COURSE: This is a very pleasant 73-year-old female with complaint of back pain radiating to the right lower extremity with neurogenic claudication, with MRI findings consistent with significan t stenosis at L3-L4 and L4-L5 with degenerative disk disease. After failing to improve from conserva tive treatment modalities, she was offered the option for surgical intervention in the form of a lumb ar decompression at L3-L4 and L4-L5. The patient tolerated procedure well and was transferred from P ACU to short-stay unit. At that time, the patient was placed on flat bed rest for 3 days as treatmen t for possible dural tear. The patient remained stable in the short-stay unit. Denied headache, jose c sea, vomiting. Would allow to elevate her bed up to 30 degrees when eating and remain flat. On the third day, the patient's bed was gradually elevated and was allowed to sit up and stand. On her blade l day in short-stay, the patient was able to ambulate, void, and tolerate orals without issue. Her v ital signs were stable and it was recommended that the patient be discharged home. Upon discharge, t he patient was given postop care instructions which included no heavy lifting, bending, twisting, and could shower, but no scrubbing of the surgery site to keep intact the Dermabond. The patient was al so instructed to follow up with primary care within 1 week and follow up in Neurosurgery Clinic in a week. She was given a week's supply of pain medication which included hydrocodone 10/325 for pain ma nagement. It was a pleasure caring for this patient and making part of this patient's healthcare and we appreciate the opportunity. TANIKA HERNÁNDEZ [id number]/[facility] #: [id number]
== END 2018-08-12 16:00 | disposition home or self-care (01) | DRG 519 ==
LOC: OR 05:43 → SSU 14:00 → OBSVTOIN 08-09 14:00
PROVIDERS: ADMIT Neurological Surgery; ATTEND Neurological Surgery
PROC: 00QT0ZZ Repair Spinal Meninges, Open Approach (ICD-10-PCS; 2018-08-08)
PROC: 01NB0ZZ Release Lumbar Nerve, Open Approach (ICD-10-PCS; principal; 2018-08-08 07:30)
DX: M43.06 Spondylolysis, lumbar region (principal); Z68.41 Body mass index [BMI] 40.0-44.9, adult; D68.9 Coagulation defect, unspecified; J95.89 Other postprocedural complications and disorders of respiratory system, not elsewhere classified; J98.11 Atelectasis; G96.0 Cerebrospinal fluid leak; G96.11 Dural tear; M51.36 Other intervertebral disc degeneration, lumbar region; M48.062 Spinal stenosis, lumbar region with neurogenic claudication; M54.16 Radiculopathy, lumbar region; E11.9 Type 2 diabetes mellitus without complications; E03.9 Hypothyroidism, unspecified; I10 Essential (primary) hypertension; E66.9 Obesity, unspecified; F32.9 Major depressive disorder, single episode, unspecified; E78.00 Pure hypercholesterolemia, unspecified; M19.90 Unspecified osteoarthritis, unspecified site; K21.9 Gastro-esophageal reflux disease without esophagitis; J44.9 Chronic obstructive pulmonary disease, unspecified; E78.5 Hyperlipidemia, unspecified; N39.3 Stress incontinence (female) (male); R09.02 Hypoxemia; R74.0 Nonspecific elevation of levels of transaminase and lactic acid dehydrogenase [LDH]; E11.51 Type 2 diabetes mellitus with diabetic peripheral angiopathy without gangrene; Z88.8 Allergy status to other drugs, medicaments and biological substances; Z79.84 Long term (current) use of oral hypoglycemic drugs; Z79.899 Other long term (current) drug therapy; Z87.891 Personal history of nicotine dependence; Z80.0 Family history of malignant neoplasm of digestive organs; Z84.1 Family history of disorders of kidney and ureter
CPT/HCPCS: 36415; 76000; 80053; 82248; 85025; A9270-GY; C1776; G0378; G8978-GP-CJ; G8978-GP-CN; G8979-GP-CI; G8979-GP-CN; G8980-GP-CN; J0330; J0690; J1170; J1240; J2001; J2250; J2405; J2704; J2765; J3010